=== PATIENT | female | born 1960 | race Hispanic/Latino ===

== ENCOUNTER 2020-05-27 17:30 | Emergency (ER) | payer SELFPAY ==
--- NOTE | 2020-05-27 17:58 | Emergency Department Report ---
<JAMES LLOYD DonnaRickey - Last Filed: 05/27/20 17:56> ED Psych HPI - General Chief Complaint: Psych Stated Complaint: SEEING SNAKES Time Seen by Provider: 05/27/20 17:50 Source: patient, EMS Mode of arrival: Ambulatory - History of Present Illness Initial Comments: Patient is 59 years old female with history of bipolar disorder. Patient presented to the ER with visual hallucination and delusion. Patient stated that she has been seeing snakes and she believes that people are putting snacks to control her. Patient stated that symptoms started yesterday. Patient denied any suicidal or homicidal ideation. No auditory hallucination. Patient is very anxious and kept looking around and pointing to objects around asking in this area snakes. Patient denied any drug abuse. MD Complaint: altered mental status - Related Data Previous Rx's Medication Instructions Recorded Last Taken Type Hydrocortisone 2.5% [Hytone 2.5% 1 applicatio TP TID #1 tube 08/02/16 Unknown Rx CREAM] predniSONE [Deltasone] 20 mg PO QDAY #5 tab 08/02/16 Unknown Rx Allergies Allergy/AdvReac Type Severity Reaction Status Date / Time haloperidol [From Haldol] Allergy Unknown Verified 08/02/16 13:53 haloperidol lactate Allergy Unknown Verified 08/02/16 13:53 [From Haldol] ED Review of Systems Comment: All other systems reviewed and negative Constitutional: denies: chills, fever Respiratory: denies: cough, shortness of breath, SOB with exertion Cardiovascular: denies: chest pain Gastrointestinal: denies: abdominal pain, nausea, vomiting Psychiatric: anxiety, visual hallucinations. denies: auditory hallucinations, homicidal thoughts, suicidal thoughts ED Past Medical Hx - Past Medical History Previous Medical History?: Yes Hx Psychiatric Treatment: (manic depression) - Social History Smoking Status: Former Smoker Substance Use Type: None - Medications Home Medications: Home Medications Medication Instructions Recorded Confirmed Last Taken Type Hydrocortisone 2.5% [Hytone 2.5% 1 applicatio TP TID #1 tube 08/02/16 Unknown Rx CREAM] predniSONE [Deltasone] 20 mg PO QDAY #5 tab 08/02/16 Unknown Rx ED Physical Exam - General Limitations: No Limitations General appearance: alert, in no apparent distress, anxious - Head Head exam: Present: atraumatic, normocephalic, normal inspection - Eye Eye exam: Present: normal appearance - ENT ENT exam: Present: normal exam, normal orophraynx, mucous membranes moist - Neck Neck exam: Present: normal inspection, full ROM. Absent: tenderness, meningismus, lymphadenopathy, thyromegaly - Respiratory Respiratory exam: Present: normal lung sounds bilaterally - Cardiovascular Cardiovascular Exam: Present: regular rate, normal rhythm, normal heart sounds - GI/Abdominal GI/Abdominal exam: Present: soft, normal bowel sounds. Absent: distended, t enderness, guarding, rebound, rigid, organomegaly, mass, bruit, pulsatile mass - Extremities Exam Extremities exam: Present: normal inspection, full ROM, normal capillary refill. Absent: pedal edema, calf tenderness - Back Exam Back exam: Present: normal inspection, full ROM. Absent: CVA tenderness (R), CVA tenderness (L) - Neurological Exam Neurological exam: Present: alert, oriented X3, CN II-XII intact, normal gait, reflexes normal. Absent: motor sensory deficit - Psychiatric Psychiatric exam: Present: anxious, manic. Absent: homicidal ideation, suicidal ideation - Skin Skin exam: Present: warm, dry, intact ED Disposition Clinical Impression: Psychoactive substance use disorder, Substance induced mood disorder Disposition: - TO HOME OR SELFCARE Condition: Stable Additional Instructions: Please follow-up with 1 of the outpatient referrals given to you by the psych iatric team. Please avoid any further illicit drug use. Take your medications as prescribed. Return to the emergency department with any worsening of your symptoms, thoughts of harming your self or others, or with any acute distress. Referrals: PRIMARY CARE, [Primary Care Provider] - 2-3 Days [facility] [Outside] - 3-5 Days <VALENTIN JI S - Last Filed: 05/30/20 12:48> ED Review of Systems ROS: Stated complaint: SEEING SNAKES Other details as noted in HPI ED Course Vital Signs 05/27/20 05/27/20 05/28/20 18:08 20:35 02:21 Temperature 98.1 F 97.7 F 97.1 F L Pulse Rate 109 H 108 H 108 H Respiratory 18 19 18 Rate Blood Pressure 167/92 171/90 169/89 [Left] O2 Sat by Pulse 98 100 99 Oximetry 05/28/20 05/28/20 05/29/20 08:00 20:00 01:00 Temperature 98.3 F 97.9 F 98.5 F Pulse Rate 111 H 98 H 76 Respiratory 20 16 20 Rate Blood Pressure 175/100 158/93 112/56 [Left] O2 Sat by Pulse 100 98 95 Oximetry 05/29/20 05/29/20 05/30/20 08:17 21:11 01:26 Temperature 97.9 F 97.7 F 97.1 F L Pulse Rate 78 89 88 Respiratory 20 18 18 Rate Blood Pressure 103/59 109/52 106/51 [Left] O2 Sat by Pulse 100 98 98 Oximetry 05/30/20 08:21 Temperature 97.6 F Pulse Rate 72 Respiratory 20 Rate Blood Pressure 145/92 [Left] O2 Sat by Pulse 100 Oximetry ED Medical Decision Making - Lab Data Result diagrams: 05/27/20 17:49 05/30/20 07:45 - Medical Decision Making This patient initially presented with delusions and acute psychosis with hallucinations in which she was seeing snakes. At this time the patient is much more calm and appropriate and no longer has these complaints. She has consistently denied any suicidal or homicidal ideations. She has been seen repeatedly by the psychiatric team and they have rescinded her 1013 and recommended outpatient follow-up. They are providing outpatient referrals. Critical care attestation.: If time is entered above; I have spent that time in minutes in the direct care of this critically ill patient, excluding procedure time. ED Disposition Is pt being admited?: No
[2020-05-27 18:09] LABS: Basophils # (Auto) 0.1 K/mm3 (0.0-0.1); Basophils % (Auto) 0.5 % (0.0-1.8); Eosinophils % (Auto) 0.1 % (0.0-4.3); Hematocrit 39.5 % (30.3-42.9); Hemoglobin 13.7 gm/dl (10.1-14.3); Lymphocytes # (Auto) 1.7 K/mm3 (1.2-5.4); Lymphocytes % (Auto) 16.2 % (13.4-35.0); Mean Corpuscular HGB Conc 35 % (30-34); Mean Corpuscular Volume 92 fl (79-97); Monocytes # (Auto) 0.6 K/mm3 (0.0-0.8); Monocytes % (Auto) 6.1 % (0.0-7.3); Platelet Count 163 K/mm3 (140-440); Red Blood Count 4.28 M/mm3 (3.65-5.03); Red Cell Distribution Width 12.6 % (13.2-15.2)
[2020-05-27 18:27] LABS: Albumin 4.5 g/dL (3.9-5); Calcium 9.8 mg/dL (8.4-10.2)
[2020-05-27 19:01] LABS: Bacteria,Urine 1+ /HPF (Negative); Bilirubin,Urine NEG (Negative); Blood,Urine NEG (Negative); Color,Urine Yellow (Yellow); Hyaline Casts,Urine 1 /LPF; Mucus,Urine 1+ /HPF; Urobilinogen,Urine < 2.0 mg/dL (<2.0)
[2020-05-27 19:05] LABS: Amphetamine Screen,Urine PRESUMPTIVE POSITIVE; Benzodiazepines Screen,Urine PRESUMPTIVE NEGATIVE; Cannabinoid Screen,Urine PRESUMPTIVE NEGATIVE; Cocaine Screen,Urine PRESUMPTIVE NEGATIVE; Methadone Screen,Urine PRESUMPTIVE NEGATIVE; Opiate Screen,Urine PRESUMPTIVE NEGATIVE
--- NOTE | 2020-05-28 07:54 | Consultation ---
History of Present Illness - Reason for Consult Consult date: 05/28/20 Reason for consult: MHE Requesting physician: JAMES LLOYD - Chief Complaint Chief complaint: Hallucination - History of Present Psychiatric Illness PER ED PROVIDER: Patient is 59 years old female with history of bipolar disorder. Patient presented to the ER with visual hallucination and delusion. Patient stated that she has been seeing snakes and she believes that people are putting snacks to control her. Patient stated that symptoms started yesterday. Patient denied any suicidal or homicidal ideation. No auditory hallucination. Patient is very anxious and kept looking around and pointing to objects around asking in this area snakes. Patient denied any drug abuse. Per MHA: Pt is a 59 yo female presenting to ED from for seeing snakes since this am. During ax, pt presented as anxious, with congruent affect and paranoid delusions. Pt looking rapidly around room, stating, oh my God, these snakes are everywhere. Theyre freaking me out. Pt informed service dispatcher that she was going to stand on a chair in order to get away from snakes. Pt is convinced that she seen a python snake yesterday and it has since been following and tormenting her. Pt stated, I didnt even know Yoko had pythons. Pt denies SI/HI and A/V H. Pt reports a historical dx of Bipolar Disorder, unspecified. Pt has been noncompliant with tx for an unknown amount of time. Pt reports residing with sister. Pt denies legal issues. Pt denies drug/alcohol use and toxicology is negative. Pt reports a decline in sleep and denies any issues with appetite. Pt gave verbal consent to contact sister and number listed on facesheet. Veneer Stapler left voicemail for contact back. PSYCH HPI Patient is a 59 year old unemployed, female with Past Psychiatric history of Depresson and Bipolar who presents to ED with complaints of visual hallucinations. Patients says she does not remembers much of what had happened yesterday, says she was at [employer], and was heading back home taking short cuts when saw a python that was attempting to attack her but thankfully she was not bitten. Patient history incoherent, loose associations and exhibit paranoia, still standing in corner of room, saying shes worried snake might show up again. Pt denies drug use but UDS positive for amphetamines. PAST PSYCHIATRIC HISTORY Diagnoses: Depression and Bipolar Suicide attempts or Self-harm behavior: Yes Prior psychiatric hospitalizations: Yes Substance Abuse history: Yes Previous psychiatric medications tried: Yes, Outpatient treatment: unknown PAST MEDICAL HISTORY: HTN Family Psychiatric History: None reported or documented SOCIAL HISTORY Marital Status: Living Arrangements: with self Employment Status: unemployed Access to guns/weapons: none reported Education: 10 th grade History of Abuse: none reported Legal History: yes REVIEW OF SYSTEMS Constitutional: Negative for weight loss ENT: Negative for stridor Respiratory: Negative for cough or hemoptysis All other systems reviewed and are negative MENTAL STATUS EXAMINATION General Appearance and Behavior: Age appropriate,fair hygiene, wearing appropriate clothes, standing in room, poor eye contact, cooperative polite with questioning. Cooperation: Participating/engaged Psychomotor Behavior: Unremarkable and within normal limits Mood: anxious Affect and affective range: anxious Thought Process: Illogical Thought Content: Paranoid, hallucinations Speech: Normal volume, Regular rate and rhythm Intellectual Functioning: Average Suicidal Ideation: Denies SI Homicidal Ideation: Denies H Impulse Control: Impaired Insight and Judgment: Limited insight and judgment Memory: Normal Attention: Normal Orientation: Alert, oriented, anxious RECOMMENDATIONS Assessment and Plan - Psychiatric problem (1) Psychoactive substance use disorder Current Visit: Yes Status: Acute (2) Schizophrenia, acute Current Visit: Yes Status: Acute MEDICATIONS: Risperidol started Risks, benefits and alternatives of medications discussed with the patient, questions answered and consent obtained from patient. PSYCHOTHERAPY: Supportive psychotherapy provided MEDICAL: Per primary team DELIRIUM PRECAUTIONS: Please re-orient patient frequently, keep lights on during the day, and minimize benzodiazepines and opiates as these medications could worsen patient's confusion. WELLNESS PROGRAM ADMINISTRATOR: DISPOSITION: Recommends acute inpatient psychiatric hospitalization at this time LEGAL STATUS: 1013 FOLLOW-UP: Will follow Thank you for the consult. Please contact with any questions and/or concerns. Medications and Allergies Allergies Allergy/AdvReac Type Severity Reaction Status Date / Time haloperidol [From Haldol] Allergy Unknown Verified 08/02/16 13:53 haloperidol lactate Allergy Unknown Verified 08/02/16 13:53 [From Haldol] Home Medications Medication Instructions Recorded Confirmed Last Taken Type Hydrocortisone 2.5% [Hytone 2.5% 1 applicatio TP TID #1 tube 08/02/16 Unknown Rx CREAM] predniSONE [Deltasone] 20 mg PO QDAY #5 tab 08/02/16 Unknown Rx Mental Status Exam - Vital signs Last Vital Signs Temp 97.1 F L 05/28/20 02:21 Pulse 108 H 05/28/20 02:21 Resp 18 05/28/20 02:21 BP 169/89 05/28/20 02:21 Pulse Ox 99 05/28/20 02:21 Results Result Diagrams: 05/27/20 17:49 05/27/20 17:54 Abnormal lab results 05/27/20 05/27/20 05/27/20 Range/Units 17:49 17:49 17:49 MCHC 35 H (30-34) % RDW 12.6 L (13.2-15.2) % Seg Neutrophils % 77.1 H (40.0-70.0) % Seg Neutrophils # 7.9 H (1.8-7.7) K/mm3 Potassium (3.6-5.0) mmol/L Chloride (98-107) mmol/L Glucose (65-100) mg/dL Total Protein (6.3-8.2) g/dL Salicylates < 0.3 L (2.8-20.0) mg/dL Acetaminophen 5.0 L (10.0-30.0) ug/mL 05/27/20 Range/Units 17:54 MCHC (30-34) % RDW (13.2-15.2) % Seg Neutrophils % (40.0-70.0) % Seg Neutrophils # (1.8-7.7) K/mm3 Potassium 3.2 L (3.6-5.0) mmol/L Chloride 97.3 L (98-107) mmol/L Glucose 109 H (65-100) mg/dL Total Protein 8.6 H (6.3-8.2) g/dL Salicylates (2.8-20.0) mg/dL Acetaminophen (10.0-30.0) ug/mL All other labs normal. Assessment and Plan - Psychiatric problem (1) Psychoactive substance use disorder Current Visit: Yes Status: Acute (2) Schizophrenia, acute Current Visit: Yes Status: Acute
[2020-05-28] MEDS ORDERED: risperiDONE 0.25 MG TAB PO SCH (22:00)
[2020-05-28] MEDS ORDERED: risperiDONE 1 MG TAB PO SCH (22:00)
--- NOTE | 2020-05-29 08:52 | Progress Note ---
Subjective - Reason for Consult Consult date: 05/29/20 Reason for consult: MHE Requesting physician: JAMES LLOYD - Chief Complaint Chief complaint: Hallucination Psych Progress Patient seen in room, looking cornerwalls, denies visual hallucination but still exhibiting paranoia. REVIEW OF SYSTEMS Constitutional: Negative for weight loss ENT: Negative for stridor Respiratory: Negative for cough or hemoptysis All other systems reviewed and are negative MENTAL STATUS EXAMINATION General Appearance and Behavior: Age appropriate,fair hygiene, wearing appropriate clothes, standing in room, poor eye contact, cooperative polite with questioning. Cooperation: Participating/engaged Psychomotor Behavior: Unremarkable and within normal limits Mood: anxious Affect and affective range: anxious Thought Process: Illogical Thought Content: Paranoid, hallucinations Speech: Normal volume, Regular rate and rhythm Intellectual Functioning: Average Suicidal Ideation: Denies SI Homicidal Ideation: Denies H Impulse Control: Impaired Insight and Judgment: Limited insight and judgment Memory: Normal Attention: Normal Orientation: Alert, oriented, anxious RECOMMENDATIONS Assessment and Plan - Psychiatric problem (1) Psychoactive substance use disorder Current Visit: Yes Status: Acute (2) Schizophrenia, acute Current Visit: Yes Status: Acute MEDICATIONS: Risperidol started Risks, benefits and alternatives of medications discussed with the patient, questions answered and consent obtained from patient. PSYCHOTHERAPY: Supportive psychotherapy provided MEDICAL: Per primary team DELIRIUM PRECAUTIONS: Please re-orient patient frequently, keep lights on during the day, and minimize benzodiazepines and opiates as these medications could worsen patient's confusion. CARRY OUT CLERK AND SHELF STOCKER: DISPOSITION: Recommends acute inpatient psychiatric hospitalization at this time LEGAL STATUS: 1013 FOLLOW-UP: Will follow Thank you for the consult. Please contact with any questions and/or concerns. Mental Status Exam - Vital signs Last Vital Signs Temp 97.9 F 05/29/20 08:17 Pulse 78 05/29/20 08:17 Resp 20 05/29/20 08:17 BP 103/59 05/29/20 08:17 Pulse Ox 100 05/29/20 08:17 Assessment and Plan - Patient Problems (1) Psychoactive substance use disorder Current Visit: Yes Status: Acute (2) Schizophrenia, acute Current Visit: Yes Status: Acute
[2020-05-29] MEDS: QUEtiapine 25 MG TAB PO SCH ×2 (10:39→22:10)
[2020-05-30 08:22] VITALS: BP 145/92
[2020-05-30] MEDS: QUEtiapine 25 MG TAB PO SCH (10:51)
--- NOTE | 2020-05-30 12:02 | Progress Note ---
Subjective - Reason for Consult Consult date: 05/30/20 Reason for consult: Hallucinations - Chief Complaint Chief complaint: The patient's medical record was reviewed and the patient's progress was discussed with the nursing staff. The nurse caring for the patient states the patient has been calm and cooperative and has denies SI/HI or hallucinations. During my interview with the patient today, she was lying down asleep. She easily arouses. The patient is a/o x 3. She is calm and cooperative. She makes good eye contact. The patient states when she came in she was "seeing pythons all around her. She said I was seeing so many of them." The patient denies SI/HI. She also denies hallucinations of any kind at present. The patient states she feels "much better." She states, "I don't see them any more. I guess the meds." The patient denies any fear or feelings of endangerment off going home. REVIEW OF SYSTEMS Constitutional: Negative for weight loss ENT: Negative for stridor Respiratory: Negative for cough or hemoptysis All other systems reviewed and are negative MENTAL STATUS EXAMINATION General Appearance: Dressed appropriately Behavior: Calm and cooperative. Good eye contact. Mood: "much better" Affect and affective range: Congruent with stated mood Speech: Normal volume, Regular rate and rhythm Thought Process: Goal directed Thought Content: Suicidal Ideation: Denies Homicidal Ideation: Denies Hallucinations: Denies Delusions: None elicited Insight and Judgment: Limited Memory/Cognition: Normal Attention: Normal Assessment 1. Amphetamine Type Use Disoder 2. Substance Induced Mood Disorder TREATMENT PLAN D/C 1013 Start Seroquel 50mg po BID Risks, benefits and alternatives of medications discussed with the patient, questions answered and consent obtained from patient. PSYCHOTHERAPY: Supportive psychotherapy provided MEDICAL: Per primary team DELIRIUM PRECAUTIONS: Please re-orient patient frequently, keep lights on during the day, and minimize benzodiazepines and opiates as these medications could worsen patient's confusion. BUILDINGS AND GROUNDS COORDINATOR: Defer to primary DISPOSITION: Do not recommend acute inpatient psychiatric hospitalization at this time. The patient may discharge home once medically clear. The patient understands that if SI/HI or any fear of endangerment are to arise she is to seek immediate assistance including but not limited to the crisis hotline, 911, and/or ER. The gum sprayer to give the patient resources for outpatient psychiatry, cognitive behavior therapy and drug rehabilitation programs. She is to follow up with outpatient psych or primary in 7 to 14 days upon discharge The patient is to abstain from all illicit drug use. Will sign off. Thank you for the consult. Please contact with any questions and/or concerns. Mental Status Exam - Vital signs Last Vital Signs Temp 97.6 F 05/30/20 08:21 Pulse 72 05/30/20 08:21 Resp 20 05/30/20 08:21 BP 145/92 05/30/20 08:21 Pulse Ox 100 05/30/20 08:21
== END 2020-05-30 15:28 | disposition home or self-care (01) ==
LOC: ED 17:30 → EEVIPCON 17:30 → ED 05-30 15:28
DX: F19.94 Other psychoactive substance use, unspecified with psychoactive substance-induced mood disorder (principal); F31.9 Bipolar disorder, unspecified; Z88.8 Allergy status to other drugs, medicaments and biological substances; Z79.899 Other long term (current) drug therapy; Z87.891 Personal history of nicotine dependence
CPT/HCPCS: 36415; 80053; 80307; 81001; 84132; 85025; 99284; U0003; 80320; G0480

== ENCOUNTER 2022-05-31 11:51 | Emergency (ER) | payer SELFPAY ==
[2022-05-31 12:10] VITALS: BP 178/88
== END 2022-05-31 15:00 | disposition left against medical advice (07) ==
LOC: ED 11:51
DX: R53.1 Weakness (principal); Z53.21 Procedure and treatment not carried out due to patient leaving prior to being seen by health care provider